=== PATIENT | female | born 1990 | race Caucasian/White ===

== ENCOUNTER 2020-12-19 20:41 | Day surgery (SDC) | payer OTHER ==
[~2020-12-19 20:41] MED LIST: BUPROPION HCL200 MG PO; BUSPAR5 MG PO; CARAFATE1 GM PO; DEXILANT60 MG PO; FLORINEF0.1 MG PO; IMITREX50 MG PO; MEDROL 4MG DOSEP4 MG PO; MELATONIN10 MG PO; VITAMIN D-32000 UNIT PO; ZOFRAN4 MG PO; ZYRTEC10 M3 PO
[2020-12-19 21:20] LABS: BASOPHIL 0.3 % (0-2); EOSINOPHIL 0.2 % (0-5); HCT 39.3 % (37.0-47.0); HGB 12.6 g/dl (12.5-16.0); MCHC 32.1 g/dL (32.0-36.0); MCV 87.3 fL (78.0-100.0); MONOCYTE 6.1 % (0-12); MPV 10.2 fL (6.0-9.5); NEUTROPHIL 79.1 % (41-80); NRBC 0; PLT 353 K/uL (150-400); WBC 11.9 K/uL (4.0-10.5)
[2020-12-19 21:40] LABS: ALBUMIN 3.9 g/dL (3.4-5.0); BILIRUBIN - TOTAL 0.2 mg/dL (0.2-1.0); BUN/CREAT RATIO (CALC) 18.4 RATIO; CREATININE 0.87 mg/dL (0.51-0.95); GLOBULIN (CALCULATION) 3.6 g/dL; TOTAL PROTEIN 7.5 g/dL (6.4-8.2)
[2020-12-19 22:11] LABS: BILIRUBIN NEGATIVE (NEGATIVE); BLOOD 3+ Ery/uL (NEGATIVE); COLOR YELLOW (YELLOW); GLUCOSE (U) NORMAL (NORMAL); LEUKOCYTES TRACE Leu/uL (NEGATIVE); NITRITE NEGATIVE (NEGATIVE); PROTEIN TRACE (LOW) mg/dL (NEGATIVE); SPECIFIC GRAVITY 1.025 (1.001-1.030); UROBILINOGEN 0.2 mg/dL (0.2-1.0); pH 6.5 (5.0-9.0)
[2020-12-19 22:30] LABS: CLARITY HAZY (CLEAR)
[2020-12-19 22:32] LABS: BACTERIA TRACE; URINARY RBC 20-50
[2020-12-20 04:34] LABS: CORONAVIRUS 2019 SARS-COV-2 NEGATIVE (NEGATIVE); INFLUENZA A NAA NEGATIVE (NEGATIVE)
[2020-12-20] MEDS ORDERED: PERCOCET 5-3251 EACH PO (06:30)
== END 2020-12-20 | disposition home or self-care (01) ==
LOC: FER 20:41 → FOR 12-20 03:46
PROVIDERS: Emergency Medicine
DX: N83.201 Unspecified ovarian cyst, right side (principal); K21.9 Gastro-esophageal reflux disease without esophagitis; E16.2 Hypoglycemia, unspecified; M85.80 Other specified disorders of bone density and structure, unspecified site; Z20.822 Contact with and (suspected) exposure to COVID-19; Z98.890 Other specified postprocedural states; Z87.42 Personal history of other diseases of the female genital tract; Z86.718 Personal history of other venous thrombosis and embolism
CPT/HCPCS: 36415; 76856; 80053; 81001; 82150; 83690; 85025; 86850; 86900; 86901; 88305; J1100; J1170; J1885; J2250; J2270; J2405; J2704; J2710; J3010; J7040; J7120; Q9967; U0002

== ENCOUNTER → 2022-06-01 | Day surgery (SDC) | payer OTHER ==
[~2022-06-01] VITALS: Ht 149.9 cm; Wt 59.0 kg
[~2022-06-01] MED LIST changes: +ACETAMINOPHEN500 M1 PO; +BUPROPION XL150 MG PO; +BUPROPION XL300 MG PO; +DESYREL50 MG PO; +DITROPAN5 MG PO; +FLONASE ALLER15.8 ML; +LARIN FE 1-201 EACH PO; +LINZESS145 MCG PO; +METOCLOPRAMIDE H5 M1 PO; +MONTELUKAST SOD10 MG PO; +PANTOPRAZOLE SO40 MG PO; +PERCOCET 5-3251 EACH PO
[2022-06-01 10:51] LABS: HCG (URINE) SCREEN NEGATIVE (NEGATIVE)
== END | disposition home or self-care (01) ==
LOC: FAS 09:45
PROVIDERS: Anesthesiology
DX: L72.0 Epidermal cyst (principal); F41.9 Anxiety disorder, unspecified; F32.A Depression, unspecified; Z88.8 Allergy status to other drugs, medicaments and biological substances; Z79.899 Other long term (current) drug therapy
CPT/HCPCS: 84703; J2250; J2704; J3010; J7120